=== PATIENT | female | born 1960 | race Caucasian/White ===

== ENCOUNTER → 2017-12-27 | Outpatient (CLI) | payer OTHER ==
[~2017-12-27] MED LIST: ASPI-650 PO; DOCU-131 PO; HYDR-3307 PO; LISI-170 PO; OMEP20TA62 PO; OXYC5TAB2 PO
== END | disposition home or self-care (01) ==
LOC: RAD 14:35 → EDSTATUS 15:00
PROVIDERS: ATTEND Physician Assistant Surgical
DX: S52.571A Other intraarticular fracture of lower end of right radius, initial encounter for closed fracture (principal); W19.XXXA Unspecified fall, initial encounter; Y93.89 Activity, other specified; Y92.89 Other specified places as the place of occurrence of the external cause; Y99.8 Other external cause status